=== PATIENT | female | born 1955 | race Native Hawaiian/Other Pacific Islander ===

== ENCOUNTER 2017-06-06 09:18 | Outpatient (CLI) | payer BC | END 2017-06-06 11:00 | disposition home or self-care (01) | LOC: MAMMO 09:18 | DX: Z12.31 Encounter for screening mammogram for malignant neoplasm of breast (principal) | CPT/HCPCS: G0202-TC ==

== ENCOUNTER 2019-11-26 09:34 | Outpatient (CLI) | payer OTHER | END 2019-11-26 19:46 | disposition home or self-care (01) | LOC: MAMMO 09:34 | DX: Z12.31 Encounter for screening mammogram for malignant neoplasm of breast (principal) ==

== ENCOUNTER 2022-11-22 08:53 | Outpatient (CLI) | payer OTHER | END 2022-11-22 19:23 | disposition home or self-care (01) | LOC: MAMMO 08:53 | PROVIDERS: ATTEND Internal Medicine | DX: Z12.31 Encounter for screening mammogram for malignant neoplasm of breast (principal) ==

== ENCOUNTER 2023-04-22 16:43 | Outpatient (CLI) | payer OTHER | END 2023-04-22 20:53 | disposition home or self-care (01) | LOC: CT 16:43 | PROVIDERS: ATTEND Internal Medicine | DX: R51.9 Headache, unspecified (principal) ==